=== PATIENT | female | born 1955 | race Caucasian/White ===

== ENCOUNTER 2016-07-23 15:00 | Emergency (ER) | payer OTHER ==
[2016-07-23 15:13] VITALS: BP 109/55; PULSE 83; RESP 16; TEMP 99.6; O2SAT 95
--- NOTE | 2016-07-23 15:26 | EDPHY ---
H & P Time Seen by Provider: 07/23/16 15:17 HPI/ROS: CHIEF COMPLAINT: Right wrist pain HISTORY OF PRESENT ILLNESS: Patient is a 61-year-old female who recently started Cymbalta for osteoarthritis who presents to the emergency department with pain, swelling and redness in her right wrist. Patient states she opened her safe and then went to her desk. She does not recall striking her wrist but she noticed redness and swelling on the volar aspect of her wrist. She has mild discomfort. The wrist does not hurt with movement. There is no streaking up the arm. No fevers or chills. No other recent trauma or pain. She had no preceding swelling prior to the incident. REVIEW OF SYSTEMS: My complete review of systems is negative except as mentioned in the HPI. Past Medical/Surgical History: Includes osteoarthritis Social History: Social history: Patient does not smoke. Smoking Status: Never smoked Physical Exam: General Appearance: Alert and no distress. Head: Pupils equal. Normal. Respiratory: No respiratory distress. Cardiac: regular rate and rhythm. Extremities: patient has a 4 cm area of bruising over the volar aspect of her right wrist. This between her ulnar and radial artery. There is no fluctuance. No streaking up the arm. Minimal swelling with no palpable mass. She has a strong radial and ulnar pulse. No petechiae. Brisk capillary refill. Normal function of radial, medial and ulnar nerves. Skin: No rashes or lesions. Neuro: Alert. Normal mood and affect. Constitutional: Initial Vital Signs Temperature (C) 37.6 C 07/23/16 15:09 Heart Rate 83 07/23/16 15:09 Respiratory Rate 16 07/23/16 15:09 Blood Pressure 109/55 L 07/23/16 15:09 O2 Sat (%) 95 07/23/16 15:09 O2 Delivery Mode Room Air Allergies/Adverse Reactions: amoxicillin Allergy (Verified 07/23/16 15:13) Home Medications: Medication Instructions Recorded Ambien 07/23/16 CLONAZEPAM 07/23/16 Cymbalta 07/23/16 Multiple Vitamins For Women 07/23/16 Medical Decision Making - Diagnostics Imaging Results: Imaging Impressions Wrist X-Ray 07/23/16 15:23 Impression: 1. Osteoarthritis of the distal navicular. 2. 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 Recommendation: If clinically indicated, consider ultrasound to evaluate for a ganglion cyst. Imaging: I viewed and interpreted images myself ED Course/Re-evaluation: In the emergency department I discussed possible etiologies with the patient. I answered all her questions. An x-ray of her right wrist was ordered. The patient consented. Right wrist x-ray: No acute disease or fracture noted. No tumor lesion. Osteoarthritic changes. Please refer the dictated report. I discussed the results with the patient. At this time I feel conservative treatment is best. Patient will ice and elevate her right wrist. She will follow up with primary care physician. She will return with worsening symptoms. She was given warnings prior to leaving. Differential Diagnosis: My differential includes but is not limited to bruising, ganglion cyst, malignancy, mass, dissection, aneurysm, gout, pseudogout, septic joint, DVT. Based on the location of the distal wrist and small area of bruising I do not feel the patient needs an ultrasound at this time. Departure - Departure Disposition: Home, Routine, Self-Care Clinical Impression: Bruising of wrist Condition: Good Instructions: Contusion in Adults (ED) Additional Instructions: Your x-ray showed no no acute abnormality. Continue to ice your wrist. Keep your wrist elevated for the next 48 hours. Return with increasing redness, pain , fever, streaking up the arm, numbness or tingling or any other concerns. Referrals: Aurora Aguero [Primary Care Provider] - 3-4 days, if not improved
== END 2016-07-23 15:52 | disposition home or self-care (01) ==
LOC: CED 15:00
DX: M79.81 Nontraumatic hematoma of soft tissue (principal)
CPT/HCPCS: 73110-PO

== ENCOUNTER 2016-08-27 13:25 | Emergency (ER) | payer OTHER ==
[2016-08-27 13:33] VITALS: BP 132/66; PULSE 77; RESP 14; TEMP 99; O2SAT 92
--- NOTE | 2016-08-27 13:44 | EDPHY ---
HPI/HX/ROS/PE/MDM Narrative: CHIEF COMPLAINT: Right ankle injury HPI: The patient is a 61-year-old female with a history of osteoarthritis. Yesterday she was going down stairs when she missed a step, causing an inversion injury to her right ankle. She denies injury to her knee or foot. She denies other injury. She complains of pain primarily when dorsiflexing her foot while bearing weight. She denies numbness, weakness or tingling. No pain and toes. REVIEW OF SYSTEMS: Aside from elements discussed in the HPI, a comprehensive 10-point review of systems was reviewed and is negative. PMH: Osteoarthritis. SOCIAL HISTORY: Denies alcohol or drug abuse. PHYSICAL EXAM: General:Patient is alert, in no acute distress. Extremities: Right lower extremity: Normal appearance. Full range of motion. No knee tenderness or swelling. There is tenderness to palpation just anterior to the anterior edge of the lateral malleolus. There is no tenderness to the calcaneus or 5th metatarsal. No medial malleolar tenderness. Normal distal pulses. Neuro: Oriented x3. Normal motor function. Normal sensory function. ED Course: X-ray of the ankle is negative for fracture or dislocation. MDM: Uncomplicated ankle sprain. The patient will be treated with a splint, crutches and pain medicine. - Data Points Imaging: I viewed and interpreted images myself General Time Seen by Provider: 08/27/16 13:29 Initial Vital Signs: Initial Vital Signs Temperature (C) 37.2 C 08/27/16 13:32 Heart Rate 77 08/27/16 13:32 Respiratory Rate 14 08/27/16 13:32 Blood Pressure 132/66 H 08/27/16 13:32 O2 Sat (%) 92 08/27/16 13:32 O2 Delivery Mode Room Air Allergies/Adverse Reactions: amoxicillin Allergy (Verified 07/23/16 15:13) Home Medications: Medication Instructions Recorded Ambien 07/23/16 CLONAZEPAM 07/23/16 Cymbalta 07/23/16 Multiple Vitamins For Women 07/23/16 Departure - Departure Disposition: Home, Routine, Self-Care Clinical Impression: Ankle sprain Condition: Good Instructions: Ankle Sprain (ED) Additional Instructions: Rest, ice, elevation. Follow up with an orthopedic surgeon within one week if pain persists. Return to the emergency department for worsening pain, swelling , numbness, weakness or other concerns. Wear splint for comfort, weight bear as tolerated. Referrals: Aurora Aguero [Primary Care Provider] - As per Instructions Rivas Tejada MD [Medical Doctor] - As per Instructions
== END 2016-08-27 13:58 | disposition home or self-care (01) ==
LOC: CED 13:25
DX: S93.401A Sprain of unspecified ligament of right ankle, initial encounter (principal); X58.XXXA Exposure to other specified factors, initial encounter
CPT/HCPCS: 73610-PO; L4350

== ENCOUNTER → 2017-06-23 | Outpatient (CLI) | payer OTHER | LOC: CIMAGING 10:13 | PROVIDERS: ATTEND Internal Medicine | DX: Z12.31 Encounter for screening mammogram for malignant neoplasm of breast (principal) ==

== ENCOUNTER → 2017-12-21 | Outpatient (CLI) | payer OTHER ==
[~2017-12-21] MED LIST: IOPAMIDOL (ISOVUE-300) 100 ML BTL ONE
== END ==
LOC: CIMAGING 14:24
PROVIDERS: ATTEND Family Medicine
DX: K83.8 Other specified diseases of biliary tract (principal); I86.2 Pelvic varices
CPT/HCPCS: 74177-PO; Q9967